=== PATIENT | male | born 1990 | race Caucasian/White ===

== ENCOUNTER 2018-11-10 16:37 | Emergency (ER) | payer OTHER ==
--- NOTE | 2018-11-10 16:49 | EDPHY ---
H & P Stated Complaint: RLQ pain Time Seen by Provider: 11/10/18 16:45 HPI/ROS: HPI: This is a 28-year-old male who presents with Chief Complaint: Right upper quadrant and right lower quadrant abdominal pain Location: Right lower quadrant and right upper quadrant abdominal Quality: Pain Duration: 2 days Signs and Symptoms: + fever, no nausea, no vomiting, no hematemesis, no blood in stool, no abdominal bloating, no diarrhea, no back pain, no urinary symptoms , no testicular/groin pain, no indigestion, no chest pain, no shortness of breath Timing: Acute, worsening Severity: Moderate Context: Patient reports that approximately 2 days ago he started to developed right lower quadrant pain that has now moved to the right upper quadrant and accompanied by a T-max fever this morning of 100 F. He reports that he took Tylenol with relief of the fever. He reports that over the today the pain has worsened. He he had a cough for the last 2-3 days and coughing makes the pain worse. He reports that his cough is productive in nature. Last meal was around 1:00 p.m. Patient reports had a bowel movement today. Denies any urinary symptoms, blood in his urine, history of kidney stones, recent long distance travel, calf pain. No PCP. Modifying Factors: Tylenol Comment: ROS: A comprehensive 10 system review of systems is otherwise negative aside from elements mentioned in the history of present illness. MEDICAL/SURGICAL/SOCIAL HISTORY: Medical history: HTN, lyme disease Surgical history: hernia repair with mesh, tonsillectomy Social history: Never smoked. Family history noncontributory. CONSTITUTIONAL: Overweight, nontoxic appearing adult white male, awake and alert, no obvious distress HEENT: Atraumatic and normocephalic, PERRL, EOMI. Nares patent; no rhinorrhea; no nasal mucosal edema. Tympanic membranes clear. Oropharynx clear, no exudate and moist pink mucosa. Airway patent. No lymphadenopathy. No meningismus. Cardiovascular: Normal S1/S2, regular rate, regular rhythm, without murmur rub or gallop. PULMONARY/CHEST: Symmetrical and nontender. Clear to auscultation bilaterally. Good air movement. No accessory muscle usage. ABDOMEN: Soft, nondistended, moderate right upper quadrant tenderness, right flank tenderness,, no rebound, no guarding, no peritoneal signs, no masses or organomegaly. No CVAT. EXTREMITIES: 2/2 pulses, strength 5/5, no deformities, no clubbing, no cyanosis or edema. NEUROLOGICAL: no focal neuro deficits. GCS 15. SKIN: Warm and dry, no erythema. no rash. Good capillary refill. Source: Patient Exam Limitations: No limitations - Personal History Current Tetanus/Diphtheria Vaccine: Yes Current Tetanus Diphtheria and Acellular Pertussis (TDAP): Yes - Medical/Surgical History Hx Asthma: No Hx Chronic Respiratory Disease: No Hx Diabetes: No Hx Cardiac Disease: Yes Hx Renal Disease: No Hx Cirrhosis: No Hx Alcoholism: No Hx HIV/AIDS: No Hx Splenectomy or Spleen Trauma: No Other PMH: HTN, lyme disease, hernia repair with mesh, tonsillectomy - Social History Smoking Status: Never smoked Constitutional: Initial Vital Signs Temperature (C) 36.9 C 11/10/18 16:39 Heart Rate 76 11/10/18 16:39 Respiratory Rate 16 11/10/18 16:39 Blood Pressure 169/102 H 11/10/18 16:39 O2 Sat (%) 96 11/10/18 16:39 O2 Delivery Mode Room Air Allergies/Adverse Reactions: No Known Allergies Allergy (Unverified 11/10/18 16:39) Home Medications: Medication Instructions Recorded Albuterol Sulfate [Proair Hfa] 1 - 2 puffs IH Q4 PRN #1 hfa.aer.ad 11/10/18 Azithromycin [Zithromax] 250 mg PO DAILY #6 tab 11/10/18 HYDROcodone/HOMATROPINE HYCODA 1 tsp PO Q4-6PRN PRN #120 ml 11/10/18 [Hycodan Syrup (*)] Medical Decision Making - Diagnostics Imaging Results: Imaging Impressions Abdomen CT 11/10/18 16:50 Impression: 1. There is a 1.0 x 3.4 x 1.8 cm subcapsular posterior right renal mildly complex fluid collection containing a couple punctate calcifications with some minimal perinephric stranding, but no intrinsic air. Could this represent the site of an old posttraumatic hematoma? Alternatively, if there are suspicious findings on urinalysis, could this represent the site of a mild infection, given the patient's right upper and right lower quadrant abdominal discomfort? 2. Normal CT appearance of the gallbladder and biliary tree. 3. There is a 9 x 9 x 10 mm posterior right hepatic lobe hypodensity, difficult to further characterize on this uniphasic study. Consider correlation with sonography. 4. Normal appearance of the appendix. 5. Mild splenomegaly. Findings were discussed with Pilar Cooper PA-C at 18:09, on 11/10/2018. ED Course/Re-evaluation: Vital signs reviewed and show elevated blood pressure upon arrival. IV access, laboratory studies, urinalysis, CT abdomen and pelvis scan ordered Given 1 L normal saline, IV morphine 4 mg and IV Zofran 4 mg 1707: Urinalysis shows trace ketones but no signs of infection, no hematuria. 1710: Labs reviewed. Mild leukocytosis of 12 K noted. No signs of anemia/ platelet dysfunction/MARY/elevated LFTs/electrolyte imbalance/pancreatitis. 1819: Called by radiologist, Dr. Moe, who reports no signs of appendicitis, no gallbladder disease, no pyelonephritis. There is a cyst on his right hepatic lobe and ultrasound is recommended for follow-up. Posterior capsule the right kidney shows a mildly complex perinephric stranding that could be old posttraumatic change or hematoma. Right lower lobe of the lung does not show any opacity. Mild splenomegaly noted. 1838: Suspect that this is related to bronchitis and costochondritis. Wells criteria is low for pulmonary embolism. Due to temperature and white count will treat for bacterial bronchitis with azithromycin. Prescription also given for albuterol inhaler and Hycodan cough syrup. [facility] and outpatient ultrasound for liver and kidney cyst. This patient was seen under the supervision of my secondary supervising physician. I evaluated care for this patient with attending. Discussed this patient with Dr. Cantu. Differential Diagnosis: Abdominal pain including but not limited to appendicitis, cholecystitis, gastritis and urinary tract infection. - Data Points Laboratory Results: Laboratory Results 11/10/18 16:50 11/10/18 16:50 11/10/18 11/10/18 11/10/18 16:50 16:50 16:45 WBC 12.15 10^3/uL H 10^3/uL (3.80-9.50) RBC 5.97 10^6/uL 10^6/uL (4.40-6.38) Hgb 17.9 g/dL H g/dL (13.7-17.5) Hct 52.7 % H % (40.0-51.0) MCV 88.3 fL fL (81.5-99.8) MCH 30.0 pg pg (27.9-34.1) MCHC 34.0 g/dL g/dL (32.4-36.7) RDW 12.3 % % (11.5-15.2) Plt Count 267 10^3/uL 10^3/uL (150-400) MPV 10.6 fL fL (8.7-11.7) Neut % (Auto) 68.3 % % (39.3-74.2) Lymph % (Auto) 16.2 % % (15.0-45.0) [place] % (Auto) 10.6 % % (4.5-13.0) Eos % (Auto) 4.2 % % (0.6-7.6) Baso % (Auto) 0.5 % % (0.3-1.7) Nucleat RBC Rel Count 0.0 % % (0.0-0.2) Absolute Neuts (auto) 8.29 10^3/uL H 10^3/uL (1.70-6.50) Absolute Lymphs (auto) 1.97 10^3/uL 10^3/uL (1.00-3.00) Absolute Monos (auto) 1.29 10^3/uL H 10^3/uL (0.30-0.80) Absolute Eos (auto) 0.51 10^3/uL H 10^3/uL (0.03-0.40) Absolute Basos (auto) 0.06 10^3/uL 10^3/uL (0.02-0.10) Absolute Nucleated RBC 0.00 10^3/uL 10^3/uL (0-0.01) Immature Gran % 0.2 % % (0.0-1.1) Immature Gran # 0.03 10^3/uL 10^3/uL (0.00-0.10) Sodium 138 mEq/L mEq/L (135-145) Potassium 4.1 mEq/L mEq/L (3.5-5.2) Chloride 101 mEq/L mEq/L (97-110) Carbon Dioxide 27 mEq/l mEq/l (22-31) Anion Gap 10 mEq/L mEq/L (6-14) BUN 10 mg/dL mg/dL (7-23) Creatinine 1.0 mg/dL mg/dL (0.7-1.3) Estimated GFR > 60 Glucose 95 mg/dL mg/dL (70-100) Calcium 10.1 mg/dL mg/dL (8.5-10.4) Total Bilirubin 0.7 mg/dL mg/dL (0.1-1.4) Conjugated Bilirubin 0.3 mg/dL mg/dL (0.0-0.5) Unconjugated Bilirubin 0.4 mg/dL mg/dL (0.0-1.1) AST 28 IU/L IU/L (17-59) ALT 33 IU/L IU/L (21-72) Alkaline Phosphatase 94 IU/L IU/L (38-126) Total Protein 7.8 g/dL g/dL (6.3-8.2) Albumin 4.9 g/dL g/dL (3.5-5.0) Lipase 63 IU/L IU/L (23-300) Urine Color YELLOW Urine Appearance CLEAR Urine pH 6.0 (5.0-7.5) Ur Specific [place] 1.013 (1.002-1.030) Urine Protein NEGATIVE (NEGATIVE) Urine Ketones TRACE H (NEGATIVE) Urine Blood NEGATIVE (NEGATIVE) Urine Nitrate NEGATIVE (NEGATIVE) Urine Bilirubin NEGATIVE (NEGATIVE) Urine Urobilinogen NEGATIVE EU EU (0.2-1.0) Ur Leukocyte Esterase NEGATIVE (NEGATIVE) Urine Glucose NEGATIVE (NEGATIVE) Medications Given: Discontinued Medications Sodium Chloride (Ns) 1,000 mls @ 0 mls/hr IV EDNOW ONE; Wide Open PRN Reason: Protocol Stop: 11/10/18 16:51 Last Admin: 11/10/18 16:55 Dose: 1,000 mls Morphine Sulfate (Morphine) 4 mg IVP EDNOW ONE Stop: 11/10/18 16:51 Last Admin: 11/10/18 16:56 Dose: 4 mg Ondansetron HCl (Zofran) 4 mg IVP EDNOW ONE Stop: 11/10/18 16:51 Last Admin: 11/10/18 16:56 Dose: 4 mg Departure - Departure Disposition: Home, Routine, Self-Care Clinical Impression: Bronchitis, Costochondritis, Liver cyst, Acquired cyst of kidney Condition: Good Instructions: Acute Bronchitis (ED), Kidney Cyst (ED) Additional Instructions: Rest as much as possible until you are feeling better. Take the antibiotic as directed. Do not skip a dose. Use albuterol inhaler every 4-6 hours as needed for shortness of breath or wheezing. Use cough syrup every 4-6 hours as needed for severe cough. Take Tylenol 650 mg every 4 hr and/or ibuprofen 600 mg with food every 8 hr as needed for pain. [facility]. Today your CT scan showed a cyst on your liver and kidney. It is recommended that you have an outpatient ultrasound for follow-up in 3-6 months. Referrals: [facility],. [Clinic] - As per Instructions Prescriptions: Albuterol Sulfate [Proair Hfa] 1 - 2 puffs IH Q4 PRN #1 hfa.aer.ad PRN Reason: Short Of Breath/Dyspnea Azithromycin [Zithromax] 250 mg PO DAILY #6 tab HYDROcodone/HOMATROPINE HYCODA [Hycodan Syrup (*)] 1 tsp PO Q4-6PRN PRN #120 ml PRN Reason: Cough, Moderate
[2018-11-10] MEDS ORDERED: ONDANSETRON 4 MG/2 ML VIAL IVP ONE (16:50)
[2018-11-10] MEDS ORDERED: NS 1,000 ML IV ONE (16:50)
[2018-11-10 17:03] LABS: PLATELET COUNT 267 10^3/uL (150-400)
[2018-11-10] MEDS ORDERED: IOHEXOL 300 mgI/ML (OMNIPAQUE) 150 ML BTL IV ONE (17:24)
[2018-11-10 19:00] VITALS: BP 137/89
== END 2018-11-10 19:02 | disposition home or self-care (01) ==
DX: J40 Bronchitis, not specified as acute or chronic (principal); M94.0 Chondrocostal junction syndrome [Tietze]; K76.89 Other specified diseases of liver; N28.1 Cyst of kidney, acquired; E86.9 Volume depletion, unspecified
CPT/HCPCS: 96374; J2270; J2405; Q9967